=== PATIENT | female | born 1980 | race Caucasian/White ===

== ENCOUNTER 2017-02-17 13:08 | Emergency (ER) | payer OTHER ==
[~2017-02-17 13:08] MED LIST: ACETAMINOPHEN PO; ANSAID100 MG PO; IBUPROFEN PO; LEVAQUIN PO; PHENERGAN PO; PRENATAL MULITV1 TAB PO; TYLENOL #3 PO; TYLOX 5/500 CAP1 CAP PO; ULTRAM PO; VICODIN 5/500 T1 TAB PO
== END 2017-02-17 14:26 | disposition home or self-care (01) ==
LOC: SED 13:08
DX: B34.9 Viral infection, unspecified (principal); J06.9 Acute upper respiratory infection, unspecified; H10.32 Unspecified acute conjunctivitis, left eye; F17.200 Nicotine dependence, unspecified, uncomplicated; Z88.8 Allergy status to other drugs, medicaments and biological substances
CPT/HCPCS: 99282